=== PATIENT | male | born 2000 | race African-American/Black ===

== ENCOUNTER 2022-03-10 10:37 | Outpatient (CLI) | payer BC, OTHER | END 2022-03-10 10:38 | disposition home or self-care (01) | LOC: TBSIIMAG 10:37 | PROVIDERS: ATTEND Orthopaedic Surgery | DX: M23.91 Unspecified internal derangement of right knee (principal); S83.411A Sprain of medial collateral ligament of right knee, initial encounter; S76.111A Strain of right quadriceps muscle, fascia and tendon, initial encounter ==